=== PATIENT | female | born 1980 | race Asian ===

== ENCOUNTER 2021-01-03 15:11 | Emergency (ER) | payer BC ==
[~2021-01-03] VITALS: Ht 162.6 cm; Wt 52.2 kg
[2021-01-03] MEDS ORDERED: IBUP-1957 PO (16:23)
[2021-01-03] MEDS ORDERED: IBUPROFEN 600 MG TABLET ONE (16:27)
[2021-01-03] MEDS: IBUPROFEN 600 MG TABLET PO ONE (16:31)
[2021-01-03 16:41] VITALS: BP 123/79
== END 2021-01-03 16:41 | disposition home or self-care (01) ==
LOC: ER 15:24
DX: S60.212A Contusion of left wrist, initial encounter (principal); S60.211A Contusion of right wrist, initial encounter; V49.49XA Driver injured in collision with other motor vehicles in traffic accident, initial encounter; Y93.89 Activity, other specified; Y92.488 Other paved roadways as the place of occurrence of the external cause; Y99.8 Other external cause status
CPT/HCPCS: 73110